=== PATIENT | female | born 1930 | race Hispanic/Latino ===

== ENCOUNTER 2016-12-13 08:17 | Emergency (ER) | payer MEDICARE ==
[2016-12-13] MEDS ORDERED: ANTIVERT PO ONE (10:23)
--- NOTE | 2016-12-13 10:52 | Emergency Department Report ---
ED Dizziness HPI - General Chief Complaint: Dizziness Stated Complaint: VOMITING Time Seen by Provider: 12/13/16 10:15 Source: patient, family, EMS Mode of arrival: Stretcher Limitations: No Limitations - History of Present Illness Initial Comments: 86-year-old female presents to the emergency department via EMS complaining of dizziness. Patient reports the acute onset of room spinning dizziness last night at 7 PM. Patient states for the past 3 days she has been having "hayfever " symptoms. Patient reports anytime she moves her head or tries to sit up, the room begins to spin. Patient reports associated nausea and has vomited a single time. At this time, while laying still, the patient is denying complaints. MD Complaint: dizziness -: Sudden, Last night Time: 19:00 Timing: sudden onset, intermittent Description: "room spinning" History of Same: No History of Trauma: No Severity: moderate Improves With: remaining still Worsens With: movement, position Associated Symptoms: other (nausea) - Related Data Home Medications Medication Instructions Recorded Confirmed Last Taken Acebutolol HCl [Sectral] 400 mg PO QDAY 12/13/16 12/13/16 Unknown Aspirin [Adult Low Dose Aspirin EC] 81 mg PO QDAY 12/13/16 12/13/16 Unknown Carboxymethyl/Glycerin/Poly80 1 - 2 drop OU BID 12/13/16 12/13/16 Unknown [Refresh Optive Advanced Drops 0.5%] Loratadine [Allergy Relief] 10 mg PO QDAY 12/13/16 12/13/16 Unknown Simvastatin [Zocor TAB] 20 mg PO QHS 12/13/16 12/13/16 Unknown Previous Rx's Medication Instructions Recorded Last Taken Type Diazepam Tab [Valium] 2 mg PO TID PRN #20 tablet 12/13/16 Unknown Rx Allergies Allergy/AdvReac Type Severity Reaction Status Date / Time codeine Allergy Unknown Verified 12/13/16 09:18 ED Review of Systems ROS: Stated complaint: VOMITING Other details as noted in HPI Comment: All other systems reviewed and negative Gastrointestinal: nausea Neurological: vertigo ED Past Medical Hx - Past Medical History Previous Medical History?: Yes Hx Hypertension: Yes Additional medical history: high cholesterol - Surgical History Past Surgical History?: Yes Additional Surgical History: Hysterectomy - Family History Family history: no significant - Social History Smoking Status: Never Smoker Substance Use Type: None - Medications Home Medications: Home Medications Medication Instructions Recorded Confirmed Last Taken Type Acebutolol HCl [Sectral] 400 mg PO QDAY 12/13/16 12/13/16 Unknown History Aspirin [Adult Low Dose Aspirin EC] 81 mg PO QDAY 12/13/16 12/13/16 Unknown History Carboxymethyl/Glycerin/Poly80 1 - 2 drop OU BID 12/13/16 12/13/16 Unknown History [Refresh Optive Advanced Drops 0.5%] Diazepam Tab [Valium] 2 mg PO TID PRN #20 tablet 12/13/16 Unknown Rx Loratadine [Allergy Relief] 10 mg PO QDAY 12/13/16 12/13/16 Unknown History Simvastatin [Zocor TAB] 20 mg PO QHS 12/13/16 12/13/16 Unknown History ED Physical Exam - General Limitations: No Limitations General appearance: alert, in no apparent distress - Head Head exam: Present: atraumatic, normocephalic - Eye Eye exam: Present: normal appearance, PERRL, EOMI - ENT ENT exam: Present: normal exam, normal orophraynx, mucous membranes moist, TM's normal bilaterally - Neck Neck exam: Present: normal inspection, full ROM. Absent: tenderness - Respiratory Respiratory exam: Present: normal lung sounds bilaterally. Absent: respiratory distress - Cardiovascular Cardiovascular Exam: Present: regular rate, normal rhythm, systolic murmur ( left lower sternal border) - GI/Abdominal GI/Abdominal exam: Present: soft, normal bowel sounds. Absent: distended, tenderness - Extremities Exam Extremities exam: Present: normal inspection, full ROM. Absent: tenderness - Back Exam Back exam: Present: normal inspection, full ROM. Absent: tenderness - Neurological Exam Neurological exam: Present: alert, oriented X3. Absent: motor sensory deficit - Skin Skin exam: Present: warm, dry, intact ED Course Vital Signs 12/13/16 12/13/16 12/13/16 09:07 09:15 09:17 Temperature 98.3 F Pulse Rate 71 71 Respiratory 15 20 Rate Blood Pressure 142/71 O2 Sat by Pulse 97 96 Oximetry 12/13/16 12/13/16 12/13/16 09:31 09:45 10:00 Temperature Pulse Rate 71 70 71 Respiratory 21 19 13 Rate Blood Pressure 142/71 142/71 135/66 O2 Sat by Pulse 97 95 98 Oximetry 12/13/16 12/13/16 12/13/16 10:15 10:31 10:45 Temperature Pulse Rate 75 68 68 Respiratory 14 20 16 Rate Blood Pressure 135/66 135/66 135/66 O2 Sat by Pulse 95 95 97 Oximetry 12/13/16 12/13/16 12/13/16 11:00 11:15 11:31 Temperature Pulse Rate 70 70 69 Respiratory 24 15 20 Rate Blood Pressure 126/62 126/62 126/62 O2 Sat by Pulse 96 97 97 Oximetry 12/13/16 12/13/16 12/13/16 11:45 12:00 12:15 Temperature Pulse Rate 68 70 71 Respiratory 20 17 13 Rate Blood Pressure 126/62 119/65 119/65 O2 Sat by Pulse 97 98 96 Oximetry - Reevaluation(s) Reevaluation #1: 12/13/16 11:19 Patient reports no change in her symptoms after oral meclizine. Giving an oral dose of Valium. Will reassess. Reevaluation #2: 12/13/16 13:53 Patient reports feeling somewhat better following oral Valium. Patient will be discharged home at this time to follow up with her primary care physician. ED Medical Decision Making - EKG Data -: EKG Interpreted by [place] EKG shows normal: sinus rhythm, axis, intervals, QRS complexes, ST-T waves Rate: normal - EKG Data When compared to previous EKG there are: previous EKG unavailable Interpretation: normal EKG - Differential Diagnosis BPPV, viral labyrinthitis Critical care attestation.: If time is entered above; I have spent that time in minutes in the direct care of this critically ill patient, excluding procedure time. ED Disposition Clinical Impression: Acute viral labyrinthitis Qualifiers: Laterality: bilateral Qualified Code(s): H83.03 - Labyrinthitis, bilateral Disposition: DISCHARGED TO HOME OR SELFCARE Is pt being admited?: No Condition: Stable Instructions: Labyrinthitis (ED) Prescriptions: Diazepam Tab [Valium] 2 mg PO TID PRN #20 tablet PRN Reason: Vertigo Referrals: PRIMARY CARE, [Primary Care Provider] - 3-5 Days Time of Disposition: 13:54
[2016-12-13] MEDS ORDERED: VALIUM PO ONE ×2 (11:19→12:00)
[2016-12-13 15:27] VITALS: BP 132/62
== END 2016-12-13 15:27 | disposition home or self-care (01) ==
LOC: ED 08:17
DX: H83.03 Labyrinthitis, bilateral (principal); I10 Essential (primary) hypertension; E78.00 Pure hypercholesterolemia, unspecified; Z88.5 Allergy status to narcotic agent; Z79.82 Long term (current) use of aspirin
CPT/HCPCS: 93005; 93010